=== PATIENT | female | born 1975 | race Caucasian/White ===

== ENCOUNTER 2021-06-08 14:24 | Emergency (ER) | payer MEDICARE, MEDICAID ==
[2021-06-08] VITALS (11 sets, daily range): BP systolic 142–168; BP diastolic 80–105
[~2021-06-08] VITALS: Ht 165.1 cm; Wt 82.0 kg
[~2021-06-08 14:24] MED LIST: ATENOLOL25 MG PO; EFFEXOR100 MG PO; GABAPENTIN300 M2 PO; METFORMIN HCL1000 MG PO; PROTONIX40 M2 PO; REQUIP0.5 MG PO; XANAX2 MG PO; ZANAFLEX4 MG PO
[2021-06-08] MEDS ORDERED: HYDROCHLOROT12.5 MG PO (15:08)
[2021-06-08] MEDS ORDERED: CARVEDILOL25 MG PO (15:09)
[2021-06-08 16:22] LABS: HEMATOCRIT 39.6 % (37.0-47.0); HEMOGLOBIN 12.8 g/dl (12.0-16.0); IMMATURE GRANULOCYTES 0.1 % (0.0-5.0); MEAN CELL VOLUME 95.4 fL CALC (80.0-100.0); MEAN CORPUSCULAR HGB 30.8 pG CALC (26.0-32.0); MEAN CORPUSCULAR HGB CONC 32.3 g/dL CAL (32.0-36.0); NEUT# 4.6 thou/uL (2.00-7.15); RED BLOOD COUNT 4.15 mill/uL (4.20-5.60); RED CELL DISTRI WIDTH 13.8 % (11.5-15.5)
[2021-06-08 16:37] LABS: ALBUMIN 4.3 g/dL (3.2-5.0); ALKALINE PHOSPHATASE 103 u/l (38-126); ANION GAP 11 (6-22 (CALC)); BILIRUBIN, TOTAL 0.3 mg/dL (0.0-1.4); BUN 18 mg/dL (7-17); BUN/CREATININE RATIO 23 (12-20 (CALC)); C-REACTIVE PROTEIN < 0.5 mg/dL (0-0.9); CARBON DIOXIDE 25 mmol/l (22-30); CHLORIDE 105 mmol/l (95-108); CREATININE 0.8 mg/dL (0.5-1.0); GFR > 60 ML/MIN (>=60 (CALC)); GFR FOR AFR.AMER. > 60 ML/MIN (>=60 (CALC)); LIPASE 109 u/l (23-300); MAGNESIUM 1.8 mg/dL (1.6-2.3); POTASSIUM 3.6 mmol/l (3.5-5.1); SGOT/AST 42 u/l (14-36); SODIUM 138 mmol/l (137-146); TOTAL PROTEIN 8.1 g/dL (6.3-8.2)
[2021-06-08] MEDS ORDERED: PREDNISONE20 MG PO (18:04)
[2021-06-08] MEDS ORDERED: MELOXICAM15 MG PO (18:04)
[2021-06-08] MEDS ORDERED: CYCLOBENZAPRINE10 MG PO (18:04)
== END 2021-06-08 18:37 | disposition home or self-care (01) ==
LOC: ED 14:24
PROVIDERS: Internal Medicine
DX: M54.42 Lumbago with sciatica, left side (principal); I10 Essential (primary) hypertension; M41.9 Scoliosis, unspecified; K21.9 Gastro-esophageal reflux disease without esophagitis

== ENCOUNTER 2022-03-14 15:30 | Emergency (ER) | payer MEDICARE, MEDICAID ==
[~2022-03-14] VITALS: Ht 165.1 cm; Wt 77.1 kg
[~2022-03-14 15:30] MED LIST changes: +CARVEDILOL25 MG PO; +CYCLOBENZAPRINE10 MG PO; +HYDROCHLOROT12.5 MG PO; +MELOXICAM15 MG PO; +PREDNISONE20 MG PO; -REQUIP0.5 MG PO; +ROPINIROLE1 MG PO
[2022-03-14 16:24] LABS: URINE BILIRUBIN - DIPSTICK NEGATIVE (NEGATIVE); URINE BLOOD DIPSTICK NEGATIVE (NEGATIVE); URINE COLOR YELLOW; URINE GLUCOSE - DIPSTICK NEGATIVE (NEGATIVE); URINE KETONE TRACE mg/dL (NEGATIVE); URINE LEUK ESTERASE NEGATIVE (NEGATIVE); URINE PH 6.5 (4.5-8.0); URINE PROTEIN - DIPSTICK TRACE mg/dL (NEG-TRACE); URINE SPECIFIC GRAVITY 1.025; URINE UROBILINOGEN - DIPSTICK 0.2 E.U./dL (0.2)
[2022-03-14 16:26] LABS: URINE NITRITE - DIPSTICK NEGATIVE (Negative)
[2022-03-14 16:43] LABS: BASO% 0.4 % (0-3); EOS% 0.4 % (0-8); HEMATOCRIT 39.5 % (37.0-47.0); HEMOGLOBIN 12.5 g/dl (12.0-16.0); IMMATURE GRANULOCYTES 0.1 % (0.0-5.0); LYMPH% 31.5 % (15-41); MEAN CORPUSCULAR HGB 28.8 pG CALC (26.0-32.0); MEAN CORPUSCULAR HGB CONC 31.6 g/dL CAL (32.0-36.0); MONO% 6.3 % (2-13); NEUT# 5.23 thou/uL (2.00-7.15); NEUT% 61.3 % (42-76); RED BLOOD COUNT 4.34 mill/uL (4.20-5.60); RED CELL DISTRI WIDTH 15.6 % (11.5-15.5)
[2022-03-14 16:46] LABS: ALBUMIN 4.6 g/dL (3.2-5.0); ALKALINE PHOSPHATASE 90 u/l (38-126); BUN 12 mg/dL (7-17); BUN/CREATININE RATIO 11 (12-20 (CALC)); CHLORIDE 105 mmol/l (95-108); CREATININE 1.1 mg/dL (0.5-1.0); GFR FOR AFR.AMER. > 60 ML/MIN (>=60 (CALC)); GFR OTHER RACES 54 ML/MIN (>=60 (CALC)); LIPASE 62 u/l (23-300); POTASSIUM 3.4 mmol/l (3.5-5.1); SGOT/AST 37 u/l (14-36); SODIUM 141 mmol/l (137-146); TOTAL PROTEIN 8.4 g/dL (6.3-8.2)
[2022-03-14 16:52] LABS: ANION GAP 6 (6-22 (CALC)); BILIRUBIN, TOTAL 0.5 mg/dL (0.02-1.3); CARBON DIOXIDE 33 mmol/l (22-30)
[2022-03-14 21:34] VITALS: BP 151/90
== END 2022-03-14 21:45 | disposition short-term general hospital (02) ==
LOC: ED 15:30
PROVIDERS: Nurse Practitioner
DX: G95.89 Other specified diseases of spinal cord (principal); R15.9 Full incontinence of feces; R32 Unspecified urinary incontinence; I10 Essential (primary) hypertension; K21.9 Gastro-esophageal reflux disease without esophagitis; Z96.89 Presence of other specified functional implants
CPT/HCPCS: Q9967

== ENCOUNTER 2023-11-07 08:17 | Emergency (ER) | payer MEDICARE, MEDICAID ==
[~2023-11-07] VITALS: Ht 165.1 cm; Wt 81.6 kg
[2023-11-07] VITALS (10 sets, daily range): BP systolic 151–190; BP diastolic 71–152
[~2023-11-07 08:17] MED LIST changes: +AMLODIPINE BESYL5 MG PO; +METHOCARBAMOL500 MG PO; +PERCOCET 5/321 COMBO PO
[2023-11-07] MEDS ORDERED: ONDANSETRON HCl 4 MG/2 ML SDV IV ONE (09:40)
[2023-11-07] MEDS ORDERED: MORPHINE SULFATE 4 MG/ML VIAL IV ONE ×2 (09:40→11:40)
[2023-11-07 10:04] LABS: BASO% 0.8 % (0-3); EOS% 1.1 % (0-8); HEMATOCRIT 36.9 % (37.0-47.0); HEMOGLOBIN 11.7 g/dl (12.0-16.0); IMMATURE GRANULOCYTES 0.1 % (0.0-5.0); LYMPH% 28.5 % (15-41); MEAN CELL VOLUME 92.9 fL CALC (80.0-100.0); MEAN CORPUSCULAR HGB 29.5 pG CALC (26.0-32.0); MEAN CORPUSCULAR HGB CONC 31.7 g/dL CAL (32.0-36.0); MONO% 6.5 % (2-13); NEUT# 4.72 thou/uL (2.00-7.15); RED BLOOD COUNT 3.97 mill/uL (4.20-5.60); RED CELL DISTRI WIDTH 15.7 % (11.5-15.5)
[2023-11-07 10:23] LABS: ALBUMIN 4.6 g/dL (3.2-5.0); BILIRUBIN, TOTAL 0.3 mg/dL (0.02-1.3); CREATININE 0.9 mg/dL (0.5-1.0); POTASSIUM 3.6 mmol/l (3.5-5.1); TOTAL PROTEIN 8.1 g/dL (6.3-8.2)
== END 2023-11-07 12:15 | disposition short-term general hospital (02) ==
LOC: ED 08:17
PROVIDERS: Family Medicine
DX: G83.4 Cauda equina syndrome (principal); I10 Essential (primary) hypertension